=== PATIENT | female | born 1975 | race Caucasian/White ===

== ENCOUNTER → 2016-09-06 | Outpatient (CLI) | payer MEDICAID | LOC: MW.CHNEURO 10:46 | PROVIDERS: ATTEND Psychiatry & Neurology Neuromuscular Medicine | DX: R20.0 Anesthesia of skin (principal); R20.2 Paresthesia of skin; G25.81 Restless legs syndrome; Z98.890 Other specified postprocedural states | CPT/HCPCS: 36415; 82525; 82728; 83921; 84165 ==

== ENCOUNTER 2016-11-18 14:05 | Emergency (ER) | payer MEDICAID ==
[2016-11-18] MEDS ORDERED: Ketorolac 60 MG/2 ML SDV IM ONE (14:25)
--- NOTE | 2016-11-18 14:32 | EDM.PDOC ---
ED HPI GENERAL MEDICAL PROBLEM - General Chief Complaint: Lower Extremity Injury/Pain Stated Complaint: RIGHT KNEE PAIN Time Seen by Provider: 11/18/16 14:11 Source of Information: Reports: Patient History Limitations: Reports: No Limitations - History of Present Illness INITIAL COMMENTS - FREE TEXT/NARRATIVE: Presents reporting right knee swelling. The patient states that she was cleaning her house all morning including doing work on her knees. She had a partial knee replacement on the right in August of 2016. An hour or so after she completed her cleaning she noticed pain and quite a bit of swelling in her right knee. Her surgeon was Dr. Rivera in [place]. right knee Pain Score (Numeric/FACES): 7 - Related Data Allergies Allergy/AdvReac Type Severity Reaction Status Date / Time amoxicillin AdvReac Other Verified 11/18/16 14:09 ciprofloxacin [From Cipro] AdvReac Other Verified 11/18/16 14:09 Home Meds: Home Meds Methylphenidate [Ritalin] 20 mg PO BID 03/03/15 [History] FLUoxetine HCl [Fluoxetine HCl] 40 mg PO QAM 05/26/15 [History] Doxepin [SINEquan] 3 cap PO BEDTIME 02/15/16 [History] Hydrocodone/Acetaminophen [Hydrocodon-Acetaminophen 5-325] 1 - 2 tab PO Q4H PRN 02/15/16 [History] PNV95/Ferrous Fumarate/FA [ Tablet] 1 tab PO DAILY 02/15/16 [History] SUMAtriptan Succinate [Imitrex] 100 mg PO ASDIRECTED 11/18/16 [History] Past Medical History HEENT History: Reports: Allergic Rhinitis Other HEENT History: wears glasses Cardiovascular History: Reports: None Respiratory History: Reports: None Other Respiratory History: when had Cdif in 2004 in [place] Gastrointestinal History: Reports: Chronic Diarrhea, GERD, Other (See Below) Other Gastrointestinal History: irritable bowel Genitourinary History: Reports: None 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: Polycystic Ovaries Musculoskeletal History: Reports: Arthritis, Back Pain, Chronic, Fracture, Fibromyalgia, Neck Pain, Chronic Other Musculoskeletal History: hx of fx tailbone Neurological History: Reports: Concussion, Migraines, Other (See Below) Other Neuro History: hx of restless leg syndrome Psychiatric History: Reports: ADHD, Anxiety, Bipolar, Depression Endocrine/Metabolic History: Reports: Obesity/BMI 30+ Hematologic History: Reports: None Immunologic History: Reports: None Oncologic (Cancer) History: Reports: None Dermatologic History: Reports: None - Infectious Disease History Infectious Disease History: Reports: C-Difficile Other Infectious Disease History: 2004 - Past Surgical History Head Surgeries/Procedures: Reports: None HEENT Surgical History: Reports: Naso-Sinus Surgery, Tonsillectomy Cardiovascular Surgical History: Reports: None Respiratory Surgical History: Reports: None GI Surgical History: Reports: Appendectomy, Colostomy, Small Bowel, Other (See Below) Female Surgical History: Reports: Hysterectomy, Tubal Ligation Endocrine Surgical History: Reports: None Musculoskeletal Surgical History: Reports: Arthroscopic Knee Oncologic Surgical History: Reports: None Dermatological Surgical History: Reports: None Social & Family History - Family History Family Medical History: Noncontributory - Tobacco Use Smoking Status *Q: Never Smoker Second Hand Smoke Exposure: No - Caffeine Use Caffeine Use: Reports: None - Alcohol Use Days Per Week of Alcohol Use: 0 Number of Drinks Per Day: 0 Total Drinks Per Week: 0 - Recreational Drug Use Recreational Drug Use: No Drug Use in Last 12 Months: No Review of Systems - Review of Systems Review Of Systems: ROS reveals no pertinent complaints other than HPI. ED EXAM, GENERAL - Physical Exam Exam: See Below Exam Limited By: No Limitations General Appearance: Alert, No Apparent Distress Ears: Normal External Exam Nose: Normal Inspection Throat/Mouth: Normal Inspection Head: Atraumatic, Normocephalic Neck: Normal Inspection Respiratory/Chest: No Respiratory Distress, Lungs Clear, Normal Breath Sounds Cardiovascular: Normal Peripheral Pulses, Regular Rate, Rhythm GI/Abdominal: Soft Back Exam: Normal Inspection Extremities: Other (Right knee swollen all about the anterior. Knee replacement incision well-healed and without erythema. CMS intact distally, pedal and posttibial pulses strong. Full range of motion of the knee with some limitation due to tightness of the effusion. Full range of motion of the ankle and toes without hesitation or limitation) Neurological: Alert, Oriented Psychiatric: Normal Affect, Normal Mood Skin Exam: Warm, Dry, Intact, Normal Color, No Rash Lymphatic: No Adenopathy Course - Vital Signs Last Recorded V/S: Last Vital Signs Temp 36.6 C 11/18/16 14:10 Pulse 92 11/18/16 14:10 Resp 16 11/18/16 14:10 BP 140/68 11/18/16 14:10 Pulse Ox 97 11/18/16 14:10 - Orders/Labs/Meds Orders: Active Orders 24 hr Category Date Time Status Ketorolac [Toradol] Med 11/18/16 14:25 Once 60 mg IM ONETIME ONE Medication Orders Ketorolac Tromethamine (Toradol) 60 mg IM ONETIME ONE Stop: 11/18/16 14:26 Meds: Medications Generic Name Dose Route Start Last Admin Trade Name Jameson PRN Reason Stop Dose Admin Ketorolac Tromethamine 60 mg 11/18/16 14:25 Toradol IM 11/18/16 14:26 ONETIME ONE Departure - Departure Time of Disposition: 14:32 Disposition: Home, Self-Care 01 Condition: good Clinical Impression: Knee effusion, right - Discharge Information Referrals: PCP,None [Primary Care Provider] - Kay Conner MD [Physician] - Forms: ED Department Discharge Additional Instructions: 1. call orthopedics immediately tomorrow morning get an appointment 2. take the diclofenac anti-inflammatory 3 times a day until seen by Dr. Conner. 3. hydrocodone as needed for pain no driving or operating machinery 4. ankle flex extend exercises every hour to prevent blood clots 5. otherwise restrict ambulation and weightbearing, no lifting, keep right leg elevated 6. Return promptly for fever, redness in the knee - My Orders Last 24 Hours: My Active Orders 11/18/16 14:25 Ketorolac [Toradol] 60 mg IM ONETIME ONE - Assessment/Plan Last 24 Hours: My Active Orders 11/18/16 14:25 Ketorolac [Toradol] 60 mg IM ONETIME ONE
[2016-11-18 14:59] VITALS: BP 116/71
== END 2016-11-18 14:58 | disposition home or self-care (01) ==
LOC: MW.ED 14:05
DX: M25.461 Effusion, right knee (principal); K21.9 Gastro-esophageal reflux disease without esophagitis; F41.9 Anxiety disorder, unspecified; F32.9 Major depressive disorder, single episode, unspecified; F31.9 Bipolar disorder, unspecified; E66.9 Obesity, unspecified; Z68.35 Body mass index [BMI] 35.0-35.9, adult; Z90.49 Acquired absence of other specified parts of digestive tract; Z90.710 Acquired absence of both cervix and uterus; Z98.51 Tubal ligation status; Z96.651 Presence of right artificial knee joint; Z98.890 Other specified postprocedural states; Z79.899 Other long term (current) drug therapy; Z88.1 Allergy status to other antibiotic agents
CPT/HCPCS: 96372; 99283; J1885

== ENCOUNTER 2016-12-08 13:15 | Emergency (ER) | payer MEDICAID ==
[2016-12-08] MEDS ORDERED: Ketorolac 60 MG/2 ML SDV IM ONE (14:34)
[2016-12-08] MEDS ORDERED: Ketorolac 30 MG/ML SDV IVPUSH ONE (14:39)
--- NOTE | 2016-12-08 14:50 | EDM.PDOC ---
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 While she has been urinating or sitting on the toilet she has felt a foreign sensation in her vagina. She has a history of partial colon removal in 2004, with appendectomy, abdominal total hysterectomy in 2014 due to abnormal bleeding. Last was in 1999. She' s had no burning with urination, hematuria and urinary frequency. No fever, chills, abdominal pain nausea vomiting. She feels that she is having incomplete emptying of her bladder since her symptoms began. No other complaints or concerns at this time. Review of systems: As per history of present illness and below otherwise all systems reviewed and negative. Past medical history: As per history of present illness and as reviewed below otherwise noncontributory. Surgical history: As per history of present illness and as reviewed below otherwise noncontributory. Social history: No reported history of drug or alcohol abuse. Family history: As per history of present illness and as reviewed below otherwise noncontributory. Physical exam: HEENT: Atraumatic, normocephalic. Lungs: Clear to auscultation, breath sounds equal bilaterally. Heart: S1S2, regular rate and rhythm. Abdomen: Soft, nondistended, nontender. Mild suprapubic tenderness. No CVAT. Pelvis: Stable nontender. Genitourinary: Normal appearing external genitalia. Normal appearing introitus. No cervix or cervical cuff appreciated. No discharge. Bladder prolapse is appreciated with valsalva maneuver. Rectal: Normal sphincter tone. No hemorrhoids or abnormalities on exam. Extremities: Atraumatic, no cyanosis or edema to feet or lower legs. Neurovascular unremarkable. Neuro: Awake, alert, oriented. Motor and sensory unremarkable throughout. Exam nonfocal. Diagnostics: [UA] Therapeutics: [Toradol 30mg IV] Impression: [bladder prolapse] Plan: [Discussed with patient that urinalysis is clear. Referred to Dr. Parker at the urology clinic for evaluation of bladder prolapse. Recommend patient stay off her feet; Tylenol or ibuprofen as needed. She is here with today's plan QUESTIONS are answered and concerns are addressed.] Definitive disposition and diagnosis as appropriate pending reevaluation and review of above. Lower Back Pain Score (Numeric/FACES): 7 - Related Data Allergies Allergy/AdvReac Type Severity Reaction Status Date / Time amoxicillin AdvReac Other Verified 11/18/16 14:09 ciprofloxacin [From Cipro] AdvReac Other Verified 11/18/16 14:09 Home Meds: Home Meds Methylphenidate [Ritalin] 20 mg PO BID 03/03/15 [History] FLUoxetine HCl [Fluoxetine HCl] 40 mg PO QAM 05/26/15 [History] Doxepin [SINEquan] 3 cap PO BEDTIME 02/15/16 [History] PNV95/Ferrous Fumarate/FA [ Tablet] 1 tab PO DAILY 02/15/16 [History] SUMAtriptan Succinate [Imitrex] 100 mg PO ASDIRECTED 11/18/16 [History] Past Medical History HEENT History: Reports: Allergic Rhinitis Other HEENT History: wears glasses Cardiovascular History: Reports: None Respiratory History: Reports: None Other Respiratory History: when had Cdif in 2004 in [place] Gastrointestinal History: Reports: Chronic Diarrhea, GERD, Other (See Below) Other Gastrointestinal History: irritable bowel Genitourinary History: Reports: None 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: Polycystic Ovaries Musculoskeletal History: Reports: Arthritis, Back Pain, Chronic, Fracture, Fibromyalgia, Neck Pain, Chronic Other Musculoskeletal History: hx of fx tailbone Neurological History: Reports: Concussion, Migraines, Other (See Below) Other Neuro History: hx of restless leg syndrome Psychiatric History: Reports: ADHD, Anxiety, Bipolar, Depression Endocrine/Metabolic History: Reports: Obesity/BMI 30+ Hematologic History: Reports: None Immunologic History: Reports: None Oncologic (Cancer) History: Reports: None Dermatologic History: Reports: None - Infectious Disease History Infectious Disease History: Reports: C-Difficile Other Infectious Disease History: 2005 - Past Surgical History Head Surgeries/Procedures: Reports: None HEENT Surgical History: Reports: Naso-Sinus Surgery, Tonsillectomy Cardiovascular Surgical History: Reports: None Respiratory Surgical History: Reports: None GI Surgical History: Reports: Appendectomy, Colostomy, Small Bowel, Other (See Below) Female Surgical History: Reports: Hysterectomy, Tubal Ligation Endocrine Surgical History: Reports: None Musculoskeletal Surgical History: Reports: Arthroscopic Knee Oncologic Surgical History: Reports: None Dermatological Surgical History: Reports: None Social & Family History - Family History Family Medical History: Noncontributory - Tobacco Use Smoking Status *Q: Never Smoker Second Hand Smoke Exposure: No - Caffeine Use Caffeine Use: Reports: Soda - Alcohol Use Days Per Week of Alcohol Use: 0 Number of Drinks Per Day: 0 Total Drinks Per Week: 0 - Recreational Drug Use Recreational Drug Use: No Drug Use in Last 12 Months: No ED ROS GENERAL - Review of Systems Review Of Systems: ROS reveals no pertinent complaints other than HPI. ED EXAM, RENAL/ - Physical Exam Exam: See Below Course - Vital Signs Last Recorded V/S: Last Vital Signs Temp 97.1 F 12/08/16 13:30 Pulse 86 12/08/16 13:30 Resp 18 12/08/16 13:30 BP 106/70 12/08/16 13:30 Pulse Ox 98 12/08/16 13:30 - Orders/Labs/Meds Orders: Active Orders 24 hr Category Date Time Status Ketorolac [Toradol] Med 12/08/16 14:34 Once 60 mg IM ONETIME ONE Labs: Laboratory Tests 12/08/16 Range/Units 13:40 Urine Color YELLOW Urine Appearance SLT CLOUDY Urine pH 6.0 (5.0-8.0) Ur Specific [place] >= 1.030 (1.001-1.035) Urine Protein 30 (NEGATIVE) mg/dL Urine Glucose (UA) NEGATIVE (NEGATIVE) mg/dL Urine Ketones NEGATIVE (NEGATIVE) mg/dL Urine Occult Blood NEGATIVE (NEGATIVE) Urine Nitrite NEGATIVE (NEGATIVE) Urine Bilirubin NEGATIVE (NEGATIVE) Urine Urobilinogen 0.2 (<2.0) EU/dL Ur Leukocyte Esterase NEGATIVE (NEGATIVE) Urine RBC 0-2 (0-2/HPF) Urine WBC 1-2 (0-5/HPF) Ur Epithelial Cells MODERATE (NONE-FEW) Calcium Oxalate Crystal MODERATE (NEGATIVE) Urine Bacteria 1+ H (NEGATIVE) Urine Mucus MANY (NONE-MOD) Departure - Departure Time of Disposition: 14:40 Disposition: Home, Self-Care 01 Condition: Good Clinical Impression: Prolapse of bladder - Discharge Information Forms: ED Department Discharge Additional Instructions: The following information is given to patients seen in the emergency department who are being discharged to home. This information is to outline your options for follow-up care. We provide all patients seen in our emergency department with a follow-up referral. The need for follow-up, as well as the timing and circumstances, are variable depending upon the specifics of your emergency department visit. If you don't have a primary care physician on staff, we will provide you with a referral. We always advise you to contact your personal physician following an emergency department visit to inform them of the circumstance of the visit and for follow-up with them and/or the need for any referrals to a consulting specialist. The emergency department will also refer you to a specialist when appropriate. This referral assures that you have the opportunity for follow-up care with a specialist. All of these measure are taken in an effort to provide you with optimal care, which includes your follow-up. Under all circumstances we always encourage you to contact your private physician who remains a resource for coordinating your care. When calling for follow-up care, please make the office aware that this follow-up is from your recent emergency room visit. If for any reason you are refused follow-up, please contact the [facility] emergency department at and asked to speak to the emergency department charge nurse. [facility] - Urology [address] [place] [id number] Contact the clinic listed above on Saturday, December 10, and schedule an appointment. Tylenol or ibuprofen as needed for discomfort. Stay off feet as much as possible until urology appointment. Return to ER as needed as discussed. - My Orders Last 24 Hours: My Active Orders 12/08/16 14:34 Ketorolac [Toradol] 60 mg IM ONETIME ONE - Assessment/Plan Last 24 Hours: My Active Orders 12/08/16 14:34 Ketorolac [Toradol] 60 mg IM ONETIME ONE
[2016-12-08 15:36] VITALS: BP 93/54
== END 2016-12-08 15:10 | disposition home or self-care (01) ==
LOC: MW.ED 13:15
DX: N81.10 Cystocele, unspecified (principal); K21.9 Gastro-esophageal reflux disease without esophagitis; M19.90 Unspecified osteoarthritis, unspecified site; G43.909 Migraine, unspecified, not intractable, without status migrainosus; F31.9 Bipolar disorder, unspecified; E66.9 Obesity, unspecified; F41.9 Anxiety disorder, unspecified; Z98.890 Other specified postprocedural states; Z90.710 Acquired absence of both cervix and uterus; Z98.51 Tubal ligation status; Z88.1 Allergy status to other antibiotic agents; Z79.899 Other long term (current) drug therapy
CPT/HCPCS: 81001; 96374; 99283; J1885

== ENCOUNTER 2017-01-03 06:58 | Day surgery (SDC) | payer MEDICAID ==
[2017-01-02 10:26] LABS: CHLORIDE,CL 110 mmol/L (98-110); SODIUM,NA 140 mmol/L (136-146)
[~2017-01-03 06:58] MED LIST: Lactated Ringers 1,000 ML IV SCH; Sodium Chloride 0.9% 10 ML Syringe FLUSH PRN; Sodium Chloride 0.9% 2.5 ML Syringe FLUSH PRN; ceFAZolin 2 GM in Premix Bag 1 BAG IV ONE
[2017-01-03] MEDS ORDERED: Fluorescein 5 ML Vial ONE (07:24)
--- NOTE | 2017-01-03 07:34 | PCM.PREANE ---
Preanesthetic Assessment - Anesthesia/Transfusion/Family Hx Anesthesia History: Prior Anesthesia Without Reaction Other Type of Anesthesia Reaction Comment: DENIES ANY PROBLEMS WITH ANESTHESIA Family History of Anesthesia Reaction: No Transfusion History: No Prior Transfusion(s) Intubation History: Unknown - Review of Systems General: No Symptoms Pulmonary: No Symptoms Cardiovascular: No Symptoms Gastrointestinal: No Symptoms Neurological: No Symptoms Other: Reports: None - Physical Assessment O2 Sat by Pulse Oximetry: 98 Respiratory Rate: 16 Vital Signs: Last Vital Signs Temp 37.5 C 01/03/17 07:19 Pulse 81 01/03/17 07:19 Resp 16 01/03/17 07:19 BP 111/63 01/03/17 07:19 Pulse Ox 98 01/03/17 07:19 Height: 1.7 m Weight: 103.419 kg ASA Class: 3 Mental Status: Alert & Oriented x3 Airway Class: Mallampati = 3 Dentition: Reports: Normal Dentition Thyro-Mental Finger Breadths: 2 Mouth Opening Finger Breadths: 2 ROM/Head Extension: Limited/Partial Lungs: Clear to Auscultation, Normal Respiratory Effort Cardiovascular: Regular Rate, Regular Rhythm - Lab Values: Laboratory Last Values WBC 5.40 K/uL (4.0-11.0) 01/02/17 09:51 RBC 4.58 M/uL (4.30-5.90) 01/02/17 09:51 Hgb 12.8 g/dL (12.0-16.0) 01/02/17 09:51 Hct 40.3 % (36.0-46.0) 01/02/17 09:51 MCV 88.0 fL (80.0-98.0) 01/02/17 09:51 MCH 27.9 pg (27.0-32.0) 01/02/17 09:51 MCHC 31.8 g/dL (31.0-37.0) 01/02/17 09:51 RDW Std Deviation 43.4 fl (28.0-62.0) 01/02/17 09:51 RDW Coeff of Jhonatan 14 % (11.0-15.0) 01/02/17 09:51 Plt Count 230 K/uL (150-400) 01/02/17 09:51 MPV 9.10 fL (7.40-12.00) 01/02/17 09:51 Nucleated RBC % 0.0 /100WBC 01/02/17 09:51 Nucleated RBCs # 0 K/uL 01/02/17 09:51 Sodium 140 mmol/L (136-146) 01/02/17 09:51 Potassium 4.0 mmol/L (3.5-5.1) 01/02/17 09:51 Chloride 110 mmol/L (98-110) 01/02/17 09:51 Carbon Dioxide 22 mmol/L (21-31) 01/02/17 09:51 BUN 15 mg/dL (6.0-23.0) 01/02/17 09:51 Creatinine 0.7 mg/dL (0.6-1.5) 01/02/17 09:51 Est Cr Clr Drug Dosing 100.77 mL/min 01/02/17 09:51 Estimated GFR (MDRD) > 60.0 ml/min 01/02/17 09:51 Glucose 94 mg/dL (60-110) 01/02/17 09:51 Calcium 9.2 mg/dL (8.8-10.8) 01/02/17 09:51 Blood Type O POSITIVE 01/02/17 09:51 Antibody Screen NEGATIVE 01/02/17 09:51 - Allergies Allergies/Adverse Reactions: Allergies Allergy/AdvReac Type Severity Reaction Status Date / Time amoxicillin AdvReac does not Verified 12/31/16 10:34 take due to past C-diff ciprofloxacin [From Cipro] AdvReac does not Verified 12/31/16 10:34 take due to past C-diff - Blood Blood Available: No - Anesthesia Plan Pre-Op Medication Ordered: None - Acknowledgements Anesthesia Type Planned: MAC Pt an Appropriate Candidate for the Planned Anesthesia: Yes Alternatives and Risks of Anesthesia Discussed w Pt/Guardian: Yes Pt/Guardian Understands and Agrees with Anesthesia Plan: Yes PreAnesthesia Questionnaire HEENT History: Reports: Allergic Rhinitis Other HEENT History: wears glasses Cardiovascular History: Reports: None Respiratory History: Reports: None Gastrointestinal History: Reports: GERD, Other (See Below) Other Gastrointestinal History: irritable bowel, hx of C-diff 2004 Genitourinary History: Reports: Renal Calculus [employer] History: Reports: Musculoskeletal History: Reports: Arthritis, Back Pain, Chronic, Fracture, Fibromyalgia, Neck Pain, Chronic, RA Other Musculoskeletal History: hx of fx tailbone Neurological History: Reports: Concussion, Migraines, Other (See Below) Other Neuro History: hx of restless leg syndrome Psychiatric History: Reports: ADHD, Anxiety, Bipolar, Depression, OCD Endocrine/Metabolic History: Reports: Obesity/BMI 30+ Hematologic History: Reports: None Immunologic History: Reports: None Oncologic (Cancer) History: Reports: None Dermatologic History: Reports: None - Infectious Disease History Infectious Disease History: Reports: C-Difficile Other Infectious Disease History: 2004 - Past Surgical History Head Surgeries/Procedures: Reports: None HEENT Surgical History: Reports: Naso-Sinus Surgery, Tonsillectomy Cardiovascular Surgical History: Reports: None Respiratory Surgical History: Reports: None GI Surgical History: Reports: Appendectomy, Colon (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 left per patient), Colostomy, Hernia, Inguinal, Small Bowel, Other (See Below) Other GI Surgeries/Procedures: pt states have colon surgery with colostomy in 2004 with reversal 1 yr later, inguinal hernia repair apr 2016 Female Surgical History: Reports: Hysterectomy, Tubal Ligation Endocrine Surgical History: Reports: None Neurological Surgical History: Reports: Discectomy Other Neurological Surgeries/Procedures: Back surgery in september 2014 Musculoskeletal Surgical History: Reports: Arthroscopic Knee Other Musculoskeletal Surgeries/Procedures:: Knee surgery, back surgery, partial knee arthroplasty in august 2016 Oncologic Surgical History: Reports: None Dermatological Surgical History: Reports: None - SUBSTANCE USE Smoking Status *Q: Never Smoker Second Hand Smoke Exposure: No Days Per Week of Alcohol Use: 0 Number of Drinks Per Day: 0 Total Drinks Per Week: 0 Recreational Drug Use History: No - HOME MEDS Home Medications: Home Meds Methylphenidate [Ritalin] 20 mg PO BID 03/03/15 [History] FLUoxetine HCl [Fluoxetine HCl] 40 mg PO QAM 05/26/15 [History] Doxepin [SINEquan] 2 cap PO BEDTIME 02/15/16 [History] PNV95/Ferrous Fumarate/FA [ Tablet] 1 tab PO DAILY 02/15/16 [History] SUMAtriptan Succinate [Imitrex] 100 mg PO ASDIRECTED PRN 11/18/16 [History] ALPRAZolam [Xanax] 0.5 mg PO ASDIRECTED 12/31/16 [History] Cholecalciferol (Vitamin D3) [Vitamin D3] 1 tab CHEW DAILY 12/31/16 [History] Gabapentin [Neurontin] 2 tab PO BID 12/31/16 [History] L.acidoph,Paracasei, B.lactis [Probiotic] 1 tab PO DAILY 12/31/16 [History] OXcarbazepine [Trileptal] 150 mg PO BID 12/31/16 [History] Omeprazole 20 mg PO BID 12/31/16 [History] Pramipexole Di-HCl [Pramipexole Dihydrochloride] 0.5 mg PO DAILY 12/31/16 [ History] - CURRENT (IN HOUSE) MEDS Current Meds: Current Medications Lactated Ringer's (Ringers, Lactated) 1,000 mls @ 125 mls/hr IV ASDIRECTED GORDON Last Admin: 01/03/17 07:21 Dose: 125 mls/hr Sodium Chloride (Saline Flush) 10 ml FLUSH ASDIRECTED PRN PRN Reason: Keep Vein Open Sodium Chloride (Saline Flush) 2.5 ml FLUSH ASDIRECTED PRN PRN Reason: Keep Vein Open Discontinued Medications Cefazolin Sodium/Dextrose 2 gm (/ Premix) 50 mls @ 100 mls/hr IV ONETIME ONE Stop: 01/02/17 09:01
[2017-01-03] MEDS ORDERED: Lidocaine 2% 5 ML SDV ONE ×2 (07:40→11:08)
[2017-01-03] MEDS ORDERED: Midazolam 1 MG/ML 2 ML SDV ONE (11:08)
[2017-01-03] MEDS ORDERED: Propofol 200 MG/20 ML SDV ONE ×2 (11:08)
[2017-01-03] MEDS ORDERED: fentaNYL 100 MCG/2 ML SDV ONE (11:08)
[2017-01-03] MEDS ORDERED: fentaNYL 250 MCG/5 ML SDV ONE (11:09)
[2017-01-03] MEDS ORDERED: Ondansetron 4 MG/2 ML SDV ONE (11:09)
[2017-01-03] MEDS ORDERED: Neostigmine Methylsulfate 1 MG/ML 5 ML Syringe ONE (11:09)
[2017-01-03] MEDS ORDERED: Ketorolac 30 MG/ML SDV ONE (11:09)
[2017-01-03] MEDS ORDERED: ePHEDrine 50 MG/ML SDV ONE (11:35)
[2017-01-03] MEDS ORDERED: HYDROmorphone 2 MG/ML Syringe ONE (12:43)
[2017-01-03] MEDS ORDERED: Ketorolac 30 MG/ML SDV IVPUSH ONE (13:03)
[2017-01-03] MEDS ORDERED: Morphine 4 MG/ML Syringe IVPUSH PRN (13:03)
[2017-01-03] MEDS ORDERED: Ondansetron 4 MG/2 ML SDV IVPUSH PRN (13:03)
[2017-01-03] MEDS ORDERED: Promethazine 25 MG/ML SDV IM PRN (13:03)
--- NOTE | 2017-01-03 13:07 | PCM.OPNOTE ---
- General Post-Op/Procedure Note Date of Surgery/Procedure: 01/03/17 Findings: Pelvic relaxation Pre Op Diagnosis: Pelvic relaxation Post-Op Diagnosis: Same Anesthesia Technique: General ET Tube Primary Surgeon: [facility] Advisor: Kelli Dobson EBL in mLs: 50 Complications: None Condition: Good
[2017-01-03] MEDS ORDERED: fentaNYL 100 MCG/2 ML SDV IVPUSH PRN (13:20)
[2017-01-03] MEDS ORDERED: HYDROmorphone 2 MG/ML Syringe IVPUSH ONE (13:45)
[2017-01-03] MEDS: Ketorolac 30 MG/ML SDV IVPUSH PRN (17:14)
[2017-01-03] MEDS: Acetaminophen/oxyCODONE 325-5 MG Tab PO PRN (20:48)
--- NOTE | 2017-01-03 22:46 | OR ---
SURGEON: Deep Hoyos MD DATE OF PROCEDURE: PREOPERATIVE DIAGNOSIS: Pelvic relaxation. POSTOPERATIVE DIAGNOSIS: Pelvic relaxation. OPERATION PERFORMED: Pelvic reconstruction and repair of enterocele, rectocele, and cystocele using Xenform, TVT, and cystoscopy. PROCESS LABORATORY SPECIALIST: PHANI Guzman. ANESTHESIA: General endotracheal intubation by Chris High and Dr. Begum. ESTIMATED BLOOD LOSS: Less than 50 mL. COMPLICATION: None. FINDINGS: Rectocele, cystocele, enterocele, and pelvic relaxation. INDICATION: Surgery reader refer to the admit note. PROCEDURE IN DETAIL: The patient was brought to the OR, properly identified, and after adequate level of general anesthesia, the patient was placed in lithotomy position. Prepped and draped in sterile fashion as usual. Straight catheter was used to empty the bladder and then the posterior vaginal wall and the vaginal cuff was infiltrated with copious amount of normal saline and then opened in the midline from the vaginal vault to the introitus and dissected laterally with blunt and sharp dissections. Enterocele and rectocele were identified at this time and reduced and dissected, and then with sharp and blunt dissection. I went to the base of the pelvis and the uterosacral and sacral spinous ligament and the ischial spine was identified on both sides. Once this was done then using a Capio needle, the Capio suture is anchored to the ischial spine and ligament on both sides, and then the Xenform was cut to form to fit the space and anchored to the posterior vaginal wall and to the apex of the vagina, and the 2 arms of the Xenform was anchored to the ischial spine and ligament from both side reducing the enterocele and the rectocele. Once this was done, then the vaginal cuff was closed with 2-0 Vicryl continuous interlocking for hemostasis. Next step, attention was paid to the anterior vaginal wall and the urethra is beneath the anterior vaginal wall. It was infiltrated to about 1 inch with normal saline and then opened in the midline, dissected laterally in a tunneling fashion to create a tunnel for the Solyx TVT. The Solyx TVT is placed in place to elevate the urethrovesical angle and to reduce some element of the cystocele. Once it was done then the vaginal cuff anteriorly closed with 2-0 Vicryl continuous interlocking for hemostasis. Cystoscopy was performed. The bladder was intact. Both ureteric orifices were seen with the urine coming from both of them. Thus, the patency of both ureters was verified. Satisfied with these findings, the procedure ended. Instrument and sponge count were correct. The patient tolerated the procedure well, went to recovery room in stable general condition. ALONSO BRITT /[id number]
[2017-01-04] MEDS: Ketorolac 30 MG/ML SDV IVPUSH PRN (00:25)
[2017-01-04] MEDS: Acetaminophen/oxyCODONE 325-5 MG Tab PO PRN ×2 (04:00→10:04)
[2017-01-04 05:56] LABS: CHLORIDE,CL 108 mmol/L (98-110); SODIUM,NA 140 mmol/L (136-146)
--- NOTE | 2017-01-04 07:40 | PCM48HPAN ---
Post Anesthesia Note - EVALUATION WITHIN 48HRS OF ANESTHETIC Vital Signs in Normal Range: Yes Patient Participated in Evaluation: Yes Respiratory Function Stable: Yes Airway Patent: Yes Cardiovascular Function Stable: Yes Hydration Status Stable: Yes Pain Control Satisfactory: Yes Nausea and Vomiting Control Satisfactory: Yes Mental Status Recovered: Yes
[2017-01-04 07:49] VITALS: BP 88/50
--- NOTE | 2017-01-04 09:19 | PCM.DCSUM1 ---
Discharge Summary - Discharge Data Discharge Date: 01/04/17 Discharge Disposition: Home, Self-Care 01 Condition: Good - Patient Instructions Diet: Usual Diet as Tolerated Activity: As Tolerated Driving: Do Not Drive Showering/Bathing: May Shower Wound/Incision Care: Keep Operative Site/Wound Site Clean and Dry Notify Provider of: Fever, Increased Pain, Nausea and/or Vomiting - Discharge Plan Home Medications: Home Meds Methylphenidate [Ritalin] 20 mg PO BID 03/03/15 [History] FLUoxetine HCl [Fluoxetine HCl] 40 mg PO QAM 05/26/15 [History] Doxepin [SINEquan] 2 cap PO BEDTIME 02/15/16 [History] PNV95/Ferrous Fumarate/FA [ Tablet] 1 tab PO DAILY 02/15/16 [History] SUMAtriptan Succinate [Imitrex] 100 mg PO ASDIRECTED PRN 11/18/16 [History] ALPRAZolam [Xanax] 0.5 mg PO ASDIRECTED 12/31/16 [History] Cholecalciferol (Vitamin D3) [Vitamin D3] 1 tab CHEW DAILY 12/31/16 [History] Gabapentin [Neurontin] 2 tab PO BID 12/31/16 [History] L.acidoph,Paracasei, B.lactis [Probiotic] 1 tab PO DAILY 12/31/16 [History] OXcarbazepine [Trileptal] 150 mg PO BID 12/31/16 [History] Omeprazole 20 mg PO BID 12/31/16 [History] Pramipexole Di-HCl [Pramipexole Dihydrochloride] 0.5 mg PO DAILY 12/31/16 [ History] - General Info Date of Service: 01/04/17 Functional Status: Reports: Pain Controlled - Review of Systems General: Reports: No Symptoms HEENT: Reports: No Symptoms Pulmonary: Reports: No Symptoms Cardiovascular: Reports: No Symptoms Gastrointestinal: Reports: No Symptoms Genitourinary: Reports: No Symptoms Musculoskeletal: Reports: No Symptoms Skin: Reports: No Symptoms Neurological: Reports: No Symptoms Psychiatric: Reports: No Symptoms - Patient Data Vitals - Most Recent: Last Vital Signs Temp 36.7 C 01/04/17 07:48 Pulse 94 01/04/17 07:48 Resp 18 01/04/17 07:48 BP 88/50 L 01/04/17 07:48 Pulse Ox 96 01/04/17 07:48 Weight - Most Recent: 103.419 kg I&O - Last 24 hours: Intake & Output 01/03/17 01/04/17 01/04/17 22:59 06:59 14:59 Intake Total 15 800 Output Total 420 1000 Balance -405 -200 Lab Results - Last 24 hrs: Laboratory Results - last 24 hr 01/04/17 01/04/17 Range/Units 05:29 05:29 WBC 8.42 (4.0-11.0) K/uL RBC 4.08 L (4.30-5.90) M/uL Hgb 11.4 L (12.0-16.0) g/dL Hct 36.1 (36.0-46.0) % MCV 88.5 (80.0-98.0) fL MCH 27.9 (27.0-32.0) pg MCHC 31.6 (31.0-37.0) g/dL RDW Std Deviation 43.0 (28.0-62.0) fl RDW Coeff of Jhonatan 13 (11.0-15.0) % Plt Count 224 (150-400) K/uL MPV 9.10 (7.40-12.00) fL Neut % (Auto) 70.6 (48.0-80.0) % Lymph % (Auto) 20.1 (16.0-40.0) % [place] % (Auto) 7.5 (0.0-15.0) % Eos % (Auto) 1.3 (0.0-7.0) % Baso % (Auto) 0.5 (0.0-1.5) % Neut # (Auto) 6.0 H (1.4-5.7) K/uL Lymph # (Auto) 1.7 (0.6-2.4) K/uL [place] # (Auto) 0.6 (0.0-0.8) K/uL Eos # (Auto) 0.1 (0.0-0.7) K/uL Baso # (Auto) 0.0 (0.0-0.1) K/uL Nucleated RBC % 0.0 /100WBC Nucleated RBCs # 0 K/uL Sodium 140 (136-146) mmol/L Potassium 3.8 (3.5-5.1) mmol/L Chloride 108 (98-110) mmol/L Carbon Dioxide 27 (21-31) mmol/L BUN 12 (6.0-23.0) mg/dL Creatinine 0.8 (0.6-1.5) mg/dL Est Cr Clr Drug Dosing 88.18 mL/min Estimated GFR (MDRD) > 60.0 ml/min Glucose 102 (60-110) mg/dL Calcium 8.3 L (8.8-10.8) mg/dL Med Orders - Current: Current Medications Fentanyl (Sublimaze) 50 mcg IVPUSH Q5M PRN PRN Reason: Pain (severe 7-10) Stop: 01/04/17 13:20 Lactated Ringer's (Ringers, Lactated) 1,000 mls @ 125 mls/hr IV ASDIRECTED [facility] Last Admin: 01/03/17 07:21 Dose: 125 mls/hr Ketorolac Tromethamine (Toradol) 30 mg IVPUSH Q6H PRN PRN Reason: Pain (severe 7-10) Stop: 01/08/17 13:03 Last Admin: 01/04/17 00:25 Dose: 30 mg Morphine Sulfate (Morphine) 4 mg IVPUSH Q2H PRN PRN Reason: Pain (severe 7-10) Ondansetron HCl (Zofran) 4 mg IVPUSH Q6H PRN PRN Reason: Nausea/Vomiting Oxycodone/Acetaminophen (Percocet 325-5 Mg) 2 tab PO Q4H PRN PRN Reason: Pain (moderate 4-6) Last Admin: 01/04/17 04:00 Dose: 2 tab Promethazine HCl (Phenergan) 25 mg IM Q6H PRN PRN Reason: Nausea/Vomiting Sodium Chloride (Saline Flush) 10 ml FLUSH ASDIRECTED PRN PRN Reason: Keep Vein Open Sodium Chloride (Saline Flush) 2.5 ml FLUSH ASDIRECTED PRN PRN Reason: Keep Vein Open Discontinued Medications Ephedrine Sulfate (Ephedrine Sulfate) Confirm Administered Dose 50 mg .ROUTE .STK-MED ONE Stop: 01/03/17 11:36 Fentanyl (Sublimaze) Confirm Administered Dose 100 mcg .ROUTE .STK-MED ONE Stop: 01/03/17 11:09 Fentanyl (Sublimaze) Confirm Administered Dose 250 mcg .ROUTE .STK-MED ONE Stop: 01/03/17 11:10 Fluorescein Sodium (Ak-Fluor) Confirm Administered Dose 5 ml .ROUTE .STK-MED ONE Stop: 01/03/17 07:25 Glycopyrrolate () Confirm Administered Dose 1 mg .ROUTE .STK-MED ONE Stop: 01/03/17 11:10 Hydromorphone HCl (Dilaudid) Confirm Administered Dose 2 mg .ROUTE .ST-MED ONE Stop: 01/03/17 12:44 Hydromorphone HCl (Dilaudid) 0 mg IVPUSH ONETIME ONE Stop: 01/03/17 13:46 Last Admin: 01/03/17 15:07 Dose: Not Given Cefazolin Sodium/Dextrose 2 gm (/ Premix) 50 mls @ 100 mls/hr IV ONETIME ONE Stop: 01/02/17 09:01 Last Admin: 01/03/17 15:06 Dose: Not Given Ketorolac Tromethamine (Toradol) Confirm Administered Dose 30 mg .ROUTE .ST- MED ONE Stop: 01/03/17 11:10 Ketorolac Tromethamine (Toradol) 30 mg IVPUSH ONETIME ONE Stop: 01/03/17 13:04 Last Admin: 01/03/17 15:06 Dose: Not Given Lidocaine (Xylocaine-Mpf 2%) Confirm Administered Dose 5 ml .ROUTE .ST-MED ONE Stop: 01/03/17 07:41 Last Admin: 01/03/17 15:06 Dose: Not Given Lidocaine (Xylocaine-Mpf 2%) Confirm Administered Dose 10 ml .ROUTE .ST-MED ONE Stop: 01/03/17 11:09 Midazolam HCl (Versed 1 Mg/Ml) Confirm Administered Dose 2 mg .ROUTE .STK-MED ONE Stop: 01/03/17 11:09 Neostigmine Methylsulfate (Neostigmine) Confirm Administered Dose 5 mg .ROUTE .STK-MED ONE Stop: 01/03/17 11:10 Ondansetron HCl (Zofran) Confirm Administered Dose 4 mg .ROUTE .STK-MED ONE Stop: 01/03/17 11:10 Propofol (Diprivan 20 Ml) Confirm Administered Dose 200 mg .ROUTE .STK-MED ONE Stop: 01/03/17 11:09 Propofol (Diprivan 20 Ml) Confirm Administered Dose 400 mg .ROUTE .STK-MED ONE Stop: 01/03/17 11:09 Rocuronium [place] (Zemuron) Confirm Administered Dose 50 mg .ROUTE .STK-MED ONE Stop: 01/03/17 11:10 - Exam General: Reports: alert, oriented HEENT: Reports: Pupils equal, Pupils reactive, EOMI, Mucous membr. moist/pink Neck: Reports: supple Lungs: Reports: Clear to Auscultation, Normal Respiratory Effort Cardiovascular: Reports: Regular Rate, Regular Rhythm GI/Abdominal Exam: Normal Bowel Sounds, Soft, Non-Tender, No Organomegaly, No Distention, No Abnormal Bruit, No Mass, Pelvis Stable (Female) Exam: Normal External Exam, Normal Speculum Exam, Normal Bimanual Exam Rectal (Female) Exam: Normal Exam, Normal Rectal Tone Back Exam: Reports: Normal Inspection, Full Range of Motion Extremities: Normal Inspection, Normal Range of Motion, Non-Tender, No Pedal Edema, Normal Capillary Refill Skin: Reports: warm, dry, intact Wound/Incisions: Reports: healing well Neurological: Reports: no new focal deficit Psy/Mental Status: Reports: alert, normal affect, normal mood *Q Meaningful Use (DIS) - VTE *Q VTE Criteria *Q: - Stroke *Q Stroke Criteria *Q: - AMI *Q AMI Criteria *Q:
--- NOTE | 2017-01-04 09:19 | PCM.SURGPN ---
- General Info Date of Service: 01/04/17 POD#: 1 Functional Status: Reports: Pain Controlled - Review of Systems General: Reports: No Symptoms HEENT: Reports: No Symptoms Pulmonary: Reports: No Symptoms Cardiovascular: Reports: No Symptoms Gastrointestinal: Reports: No Symptoms Genitourinary: Reports: No Symptoms Musculoskeletal: Reports: No Symptoms Skin: Reports: No Symptoms Neurological: Reports: No Symptoms Psychiatric: Reports: No Symptoms - Patient Data Vitals - most recent: Last Vital Signs Temp 36.7 C 01/04/17 07:48 Pulse 94 01/04/17 07:48 Resp 18 01/04/17 07:48 BP 88/50 L 01/04/17 07:48 Pulse Ox 96 01/04/17 07:48 Weight - most recent: 103.419 kg I&O - last 24 hours: Intake & Output 01/03/17 01/04/17 01/04/17 22:59 06:59 14:59 Intake Total 15 800 Output Total 420 1000 Balance -405 -200 Lab Results last 24 hrs: Laboratory Results - last 24 hr 01/04/17 01/04/17 Range/Units 05:29 05:29 WBC 8.42 (4.0-11.0) K/uL RBC 4.08 L (4.30-5.90) M/uL Hgb 11.4 L (12.0-16.0) g/dL Hct 36.1 (36.0-46.0) % MCV 88.5 (80.0-98.0) fL MCH 27.9 (27.0-32.0) pg MCHC 31.6 (31.0-37.0) g/dL RDW Std Deviation 43.0 (28.0-62.0) fl RDW Coeff of Jhonatan 13 (11.0-15.0) % Plt Count 224 (150-400) K/uL MPV 9.10 (7.40-12.00) fL Neut % (Auto) 70.6 (48.0-80.0) % Lymph % (Auto) 20.1 (16.0-40.0) % [place] % (Auto) 7.5 (0.0-15.0) % Eos % (Auto) 1.3 (0.0-7.0) % Baso % (Auto) 0.5 (0.0-1.5) % Neut # (Auto) 6.0 H (1.4-5.7) K/uL Lymph # (Auto) 1.7 (0.6-2.4) K/uL [place] # (Auto) 0.6 (0.0-0.8) K/uL Eos # (Auto) 0.1 (0.0-0.7) K/uL Baso # (Auto) 0.0 (0.0-0.1) K/uL Nucleated RBC % 0.0 /100WBC Nucleated RBCs # 0 K/uL Sodium 140 (136-146) mmol/L Potassium 3.8 (3.5-5.1) mmol/L Chloride 108 (98-110) mmol/L Carbon Dioxide 27 (21-31) mmol/L BUN 12 (6.0-23.0) mg/dL Creatinine 0.8 (0.6-1.5) mg/dL Est Cr Clr Drug Dosing 88.18 mL/min Estimated GFR (MDRD) > 60.0 ml/min Glucose 102 (60-110) mg/dL Calcium 8.3 L (8.8-10.8) mg/dL Med Orders - Current: Current Medications Fentanyl (Sublimaze) 50 mcg IVPUSH Q5M PRN PRN Reason: Pain (severe 7-10) Stop: 01/04/17 13:20 Lactated Ringer's (Ringers, Lactated) 1,000 mls @ 125 mls/hr IV ASDIRECTED [facility] Last Admin: 01/03/17 07:21 Dose: 125 mls/hr Ketorolac Tromethamine (Toradol) 30 mg IVPUSH Q6H PRN PRN Reason: Pain (severe 7-10) Stop: 01/08/17 13:03 Last Admin: 01/04/17 00:25 Dose: 30 mg Morphine Sulfate (Morphine) 4 mg IVPUSH Q2H PRN PRN Reason: Pain (severe 7-10) Ondansetron HCl (Zofran) 4 mg IVPUSH Q6H PRN PRN Reason: Nausea/Vomiting Oxycodone/Acetaminophen (Percocet 325-5 Mg) 2 tab PO Q4H PRN PRN Reason: Pain (moderate 4-6) Last Admin: 01/04/17 04:00 Dose: 2 tab Promethazine HCl (Phenergan) 25 mg IM Q6H PRN PRN Reason: Nausea/Vomiting Sodium Chloride (Saline Flush) 10 ml FLUSH ASDIRECTED PRN PRN Reason: Keep Vein Open Sodium Chloride (Saline Flush) 2.5 ml FLUSH ASDIRECTED PRN PRN Reason: Keep Vein Open Discontinued Medications Ephedrine Sulfate (Ephedrine Sulfate) Confirm Administered Dose 50 mg .ROUTE .STK-MED ONE Stop: 01/03/17 11:36 Fentanyl (Sublimaze) Confirm Administered Dose 100 mcg .ROUTE .STK-MED ONE Stop: 01/03/17 11:09 Fentanyl (Sublimaze) Confirm Administered Dose 250 mcg .ROUTE .STK-MED ONE Stop: 01/03/17 11:10 Fluorescein Sodium (Ak-Fluor) Confirm Administered Dose 5 ml .ROUTE .STK-MED ONE Stop: 01/03/17 07:25 Glycopyrrolate () Confirm Administered Dose 1 mg .ROUTE .STK-MED ONE Stop: 01/03/17 11:10 Hydromorphone HCl (Dilaudid) Confirm Administered Dose 2 mg .ROUTE .STK-MED ONE Stop: 01/03/17 12:44 Hydromorphone HCl (Dilaudid) 0 mg IVPUSH ONETIME ONE Stop: 01/03/17 13:46 Last Admin: 01/03/17 15:07 Dose: Not Given Cefazolin Sodium/Dextrose 2 gm (/ Premix) 50 mls @ 100 mls/hr IV ONETIME ONE Stop: 01/02/17 09:01 Last Admin: 01/03/17 15:06 Dose: Not Given Ketorolac Tromethamine (Toradol) Confirm Administered Dose 30 mg .ROUTE .STK- MED ONE Stop: 01/03/17 11:10 Ketorolac Tromethamine (Toradol) 30 mg IVPUSH ONETIME ONE Stop: 01/03/17 13:04 Last Admin: 01/03/17 15:06 Dose: Not Given Lidocaine (Xylocaine-Mpf 2%) Confirm Administered Dose 5 ml .ROUTE .STK-MED ONE Stop: 01/03/17 07:41 Last Admin: 01/03/17 15:06 Dose: Not Given Lidocaine (Xylocaine-Mpf 2%) Confirm Administered Dose 10 ml .ROUTE .STK-MED ONE Stop: 01/03/17 11:09 Midazolam HCl (Versed 1 Mg/Ml) Confirm Administered Dose 2 mg .ROUTE .STK-MED ONE Stop: 01/03/17 11:09 Neostigmine Methylsulfate (Neostigmine) Confirm Administered Dose 5 mg .ROUTE .STK-MED ONE Stop: 01/03/17 11:10 Ondansetron HCl (Zofran) Confirm Administered Dose 4 mg .ROUTE .STK-MED ONE Stop: 01/03/17 11:10 Propofol (Diprivan 20 Ml) Confirm Administered Dose 200 mg .ROUTE .STK-MED ONE Stop: 01/03/17 11:09 Propofol (Diprivan 20 Ml) Confirm Administered Dose 400 mg .ROUTE .STK-MED ONE Stop: 01/03/17 11:09 Rocuronium [place] (Zemuron) Confirm Administered Dose 50 mg .ROUTE .STK-MED ONE Stop: 01/03/17 11:10 - Exam Wound/Incisions: healing well General: alert, oriented HEENT: Pupils equal Neck: supple Lungs: Clear to Auscultation, Normal Respiratory Effort Cardiovascular: Regular Rate, Regular Rhythm GI/Abdominal Exam: Normal Bowel Sounds, Soft, Non-Tender, No Organomegaly, No Distention, No Abnormal Bruit, No Mass, Pelvis Stable Extremities: Normal Inspection, Normal Range of Motion, Non-Tender, No Pedal Edema, Normal Capillary Refill Skin: warm, dry, intact Neurological: no new focal deficit Psy/Mental Status: alert, normal affect, normal mood - Problem List Review Problem List Initiated/Reviewed/Updated: Yes - My Orders Last 24 Hours: Active Orders 24 hr Category Date Time Status Patient Status [ADT] Routine ADT 01/03/17 13:03 Active Antiembolic Devices [RC] Q12H Care 01/03/17 13:04 Active Notify Provider Vital Signs [RC] ASDIRECTED Care 01/03/17 13:03 Active Oxygen Therapy [RC] ASDIRECTED Care 01/03/17 13:03 Active RT Incentive Spirometry [RC] Q2HWA Care 01/03/17 13:03 Active Up With Assistance [RC] PER UNIT ROUTINE Care 01/03/17 13:03 Active Up ad Sally [RC] PER UNIT ROUTINE Care 01/03/17 13:03 Active Urinary Catheter Removal [RC] Per Unit Routine Care 01/03/17 13:03 Active Vital Signs [RC] PER UNIT ROUTINE Care 01/03/17 13:03 Active Regular Diet [DIET] Diet 01/03/17 Dinner Active Acetaminophen/oxyCODONE [Percocet 325-5 MG] Med 01/03/17 13:03 Active 2 tab PO Q4H PRN Ketorolac [Toradol] Med 01/03/17 13:03 Active 30 mg IVPUSH Q6H PRN Morphine Med 01/03/17 13:03 Active 4 mg IVPUSH Q2H PRN Ondansetron [Zofran] Med 01/03/17 13:03 Active 4 mg IVPUSH Q6H PRN Promethazine [Phenergan] Med 01/03/17 13:03 Active 25 mg IM Q6H PRN fentaNYL [Sublimaze] Med 01/03/17 13:20 Active 50 mcg IVPUSH Q5M PRN Peripheral IV Discontinue [OM.PC] Routine Oth 01/03/17 13:03 Ordered Sequential Compression Device [OM.PC] Per Unit Routine Oth 01/03/17 13:03 Ordered Resuscitation Status Routine Resus Stat 01/03/17 13:03 Ordered Medication Orders Fentanyl (Sublimaze) 50 mcg IVPUSH Q5M PRN PRN Reason: Pain (severe 7-10) Stop: 01/04/17 13:20 Lactated Ringer's (Ringers, Lactated) 1,000 mls @ 125 mls/hr IV ASDIRECTED [facility] Last Admin: 01/03/17 07:21 Dose: 125 mls/hr Ketorolac Tromethamine (Toradol) 30 mg IVPUSH Q6H PRN PRN Reason: Pain (severe 7-10) Stop: 01/08/17 13:03 Last Admin: 01/04/17 00:25 Dose: 30 mg Admin: 01/03/17 17:14 Dose: 30 mg Morphine Sulfate (Morphine) 4 mg IVPUSH Q2H PRN PRN Reason: Pain (severe 7-10) Ondansetron HCl (Zofran) 4 mg IVPUSH Q6H PRN PRN Reason: Nausea/Vomiting Oxycodone/Acetaminophen (Percocet 325-5 Mg) 2 tab PO Q4H PRN PRN Reason: Pain (moderate 4-6) Last Admin: 01/04/17 04:00 Dose: 2 tab Admin: 01/03/17 20:48 Dose: 2 tab Promethazine HCl (Phenergan) 25 mg IM Q6H PRN PRN Reason: Nausea/Vomiting Sodium Chloride (Saline Flush) 10 ml FLUSH ASDIRECTED PRN PRN Reason: Keep Vein Open Sodium Chloride (Saline Flush) 2.5 ml FLUSH ASDIRECTED PRN PRN Reason: Keep Vein Open - Plan Plan (Free Text/Narrative):: Status post pelvic reconstruction and TVT postoperative day #1 the vaginal pack is removed there is no bleeding catheter removed. Blood pressure is normal the patient had no complaint have lab work is normal the patient is to be discharged home today the postoperative instruction is given to the patient she is to come to the office 1 week of discharge for postoperative checkup but there is no restriction on her diet and prescription for Percocet 7.5/325 for postoperative pain is given
== END 2017-01-04 11:35 | disposition home or self-care (01) ==
LOC: MW.SDS 06:58 → MW.MS 13:03 → MW.SDS 01-04 11:35
PROVIDERS: ATTEND Obstetrics & Gynecology
PROC: 0JUC0JZ Supplement of Pelvic Region Subcutaneous Tissue and Fascia with Synthetic Substitute, Open Approach (ICD-10-PCS; principal; 2017-01-03)
PROC: 0JUC3JZ Supplement of Pelvic Region Subcutaneous Tissue and Fascia with Synthetic Substitute, Percutaneous Approach (ICD-10-PCS; 2017-01-03)
PROC: 0JUC3JZ Supplement of Pelvic Region Subcutaneous Tissue and Fascia with Synthetic Substitute, Percutaneous Approach (ICD-10-PCS; 2017-01-03)
PROC: 0UQF3ZZ Repair Cul-de-sac, Percutaneous Approach (ICD-10-PCS; 2017-01-03)
DX: N81.4 Uterovaginal prolapse, unspecified (principal); N81.11 Cystocele, midline; N39.3 Stress incontinence (female) (male); Z90.710 Acquired absence of both cervix and uterus; F41.9 Anxiety disorder, unspecified; M19.90 Unspecified osteoarthritis, unspecified site; F31.9 Bipolar disorder, unspecified; M17.11 Unilateral primary osteoarthritis, right knee; F32.9 Major depressive disorder, single episode, unspecified; K21.9 Gastro-esophageal reflux disease without esophagitis; K58.9 Irritable bowel syndrome, unspecified; E66.9 Obesity, unspecified; Z68.35 Body mass index [BMI] 35.0-35.9, adult; G25.81 Restless legs syndrome; M06.9 Rheumatoid arthritis, unspecified; G47.30 Sleep apnea, unspecified; Z88.1 Allergy status to other antibiotic agents; Z79.899 Other long term (current) drug therapy; Z90.49 Acquired absence of other specified parts of digestive tract; Z93.2 Ileostomy status
CPT/HCPCS: 36415; 57250; 57267; 57423; 80048; 85025; 85027; 86850; 86900; 86901; A9270; C1763; C1781; J1170; J1885; J2250; J2405; J3010; J7120; 00942; J2704

== ENCOUNTER 2017-03-12 14:15 | Emergency (ER) | payer MEDICAID ==
[2017-03-12 14:41] VITALS: BP 116/70
--- NOTE | 2017-03-12 14:57 | EDM.PDOC ---
ED HPI GENERAL MEDICAL PROBLEM - General Chief Complaint: Lower Extremity Injury/Pain Stated Complaint: LEFT FOOT INJURY Time Seen by Provider: 03/12/17 14:50 Source of Information: Reports: Patient History Limitations: Reports: No Limitations - History of Present Illness INITIAL COMMENTS - FREE TEXT/NARRATIVE: HISTORY AND PHYSICAL: History of present illness: [Patient comes to the emergency room complaining of left foot pain. She states that she tripped up the stairs 2 weeks ago prior to the onset of foot discomfort. Her pain has gradually gotten worse since the onset. Pain is across the top of her left foot and radiates medially around her foot and heel and up her calf. Has a history of chronic pain due to fibromyalgia. She follows regularly with Dr. Brumfield but has not mentioned the foot discomfort to him even though she has seen him within the past couple of weeks. No numbness or tingling. She has not had any bruising or swelling to her foot. Schedules with Dr. Brumfield for later this week while she is in the ER.] Review of systems: As per history of present illness and below otherwise all systems reviewed and negative. Past medical history: As per history of present illness and as reviewed below otherwise noncontributory. Surgical history: As per history of present illness and as reviewed below otherwise noncontributory. Social history: No reported history of drug or alcohol abuse. Family history: As per history of present illness and as reviewed below otherwise noncontributory. Physical exam: HEENT: Atraumatic, normocephalic. Extremities: No swelling, ecchymosis or erythema to her left foot. Pedal pulses are 2+ and strong. Cap refill less than 2 seconds. Has full range of motion. No tenderness with palpation. Is atraumatic in appearance. Neurovascular unremarkable. Neuro: Awake, alert, oriented. Motor and sensory unremarkable throughout. Exam nonfocal. Diagnostics: [L foot xray, L ankle xray] Impression: [L foot pain] Plan: [Follow up w/ Dr. Brumfield as scheduled. Continue current medications as prescribed. Return to ER as needed as discussed. She is in agreement with today' s plan. All of her questions are answered and concerns are addressed.] Definitive disposition and diagnosis as appropriate pending reevaluation and review of above. Left Foot Pain Score (Numeric/FACES): 6 - Related Data Allergies Allergy/AdvReac Type Severity Reaction Status Date / Time amoxicillin AdvReac does not Verified 03/12/17 14:41 take due to past C-diff ciprofloxacin [From Cipro] AdvReac does not Verified 03/12/17 14:41 take due to past C-diff Home Meds: Home Meds Methylphenidate [Ritalin] 20 mg PO BID 03/03/15 [History] FLUoxetine HCl [Fluoxetine HCl] 40 mg PO QAM 05/26/15 [History] Doxepin [SINEquan] 2 cap PO BEDTIME 02/15/16 [History] PNV95/Ferrous Fumarate/FA [ Tablet] 1 tab PO DAILY 02/15/16 [History] SUMAtriptan Succinate [Imitrex] 100 mg PO ASDIRECTED PRN 11/18/16 [History] ALPRAZolam [Xanax] 0.5 mg PO ASDIRECTED 12/31/16 [History] Cholecalciferol (Vitamin D3) [Vitamin D3] 1 tab CHEW DAILY 12/31/16 [History] Gabapentin [Neurontin] 2 tab PO BID 12/31/16 [History] L.acidoph,Paracasei, B.lactis [Probiotic] 1 tab PO DAILY 12/31/16 [History] OXcarbazepine [Trileptal] 150 mg PO BID 12/31/16 [History] Omeprazole 20 mg PO BID 12/31/16 [History] Pramipexole Di-HCl [Pramipexole Dihydrochloride] 0.5 mg PO DAILY 12/31/16 [ History] oxyCODONE HCl/Acetaminophen [Percocet 7.5-325 mg Tablet] 1 each PO Q4H PRN #30 tablet 01/04/17 [Rx] Past Medical History HEENT History: Reports: Allergic Rhinitis, Other (See Below) Other HEENT History: wears glasses Cardiovascular History: Reports: None Respiratory History: Reports: None Gastrointestinal History: Reports: GERD, Other (See Below) Other Gastrointestinal History: irritable bowel, hx of C-diff 2004 Genitourinary History: Reports: Renal Calculus [employer]ORY [employer]UNTER History: Reports: Musculoskeletal History: Reports: Arthritis, Back Pain, Chronic, Fracture, Fibromyalgia, Neck Pain, Chronic, RA Other Musculoskeletal History: hx of fx tailbone Neurological History: Reports: Concussion, Migraines, Other (See Below) Other Neuro History: hx of restless leg syndrome Psychiatric History: Reports: ADHD, Anxiety, Bipolar, Depression, OCD Endocrine/Metabolic History: Reports: Obesity/BMI 30+ Hematologic History: Reports: None Immunologic History: Reports: None Oncologic (Cancer) History: Reports: None Dermatologic History: Reports: None - Infectious Disease History Infectious Disease History: Reports: None Other Infectious Disease History: 2005 - Past Surgical History Head Surgeries/Procedures: Reports: None HEENT Surgical History: Reports: Naso-Sinus Surgery, Tonsillectomy Cardiovascular Surgical History: Reports: None Respiratory Surgical History: Reports: None GI Surgical History: Reports: Appendectomy, Colon, Colostomy, Hernia, Inguinal, Small Bowel, Other (See Below) Other GI Surgeries/Procedures: pt states have colon surgery with colostomy in 2004 with reversal 1 yr later, inguinal hernia repair apr 2016 Female Surgical History: Reports: Hysterectomy, Tubal Ligation Endocrine Surgical History: Reports: None Neurological Surgical History: Reports: Discectomy Other Neurological Surgeries/Procedures: Back surgery in september 2014 Musculoskeletal Surgical History: Reports: Arthroscopic Knee Other Musculoskeletal Surgeries/Procedures:: Knee surgery, back surgery, partial knee arthroplasty in august 2016 Oncologic Surgical History: Reports: None Dermatological Surgical History: Reports: None Social & Family History - Family History Family Medical History: Noncontributory - Tobacco Use Smoking Status *Q: Never Smoker Second Hand Smoke Exposure: No - Caffeine Use Caffeine Use: Reports: None - Alcohol Use Days Per Week of Alcohol Use: 0 Number of Drinks Per Day: 0 Total Drinks Per Week: 0 - Recreational Drug Use Recreational Drug Use: No Drug Use in Last 12 Months: No Review of Systems - Review of Systems Review Of Systems: ROS reveals no pertinent complaints other than HPI. ED EXAM, GENERAL - Physical Exam Exam: See Below Course - Vital Signs Last Recorded V/S: Last Vital Signs Temp 98.0 F 03/12/17 14:37 Pulse 78 03/12/17 14:37 Resp 16 03/12/17 14:37 BP 116/70 03/12/17 14:37 Pulse Ox 98 03/12/17 14:37 - Orders/Labs/Meds Orders: Active Orders 24 hr Category Date Time Status Ankle Min 3V Lt [CR] Stat Exams 03/12/17 14:58 Taken Foot 2V Lt [CR] Stat Exams 09/26/17 14:58 Taken Departure - Departure Time of Disposition: 16:40 Disposition: Home, Self-Care 01 Condition: Good Clinical Impression: Left foot pain - Discharge Information Referrals: Marin Brumfield MD [Primary Care Provider] - Forms: ED Department Discharge Additional Instructions: The following information is given to patients seen in the emergency department who are being discharged to home. This information is to outline your options for follow-up care. We provide all patients seen in our emergency department with a follow-up referral. The need for follow-up, as well as the timing and circumstances, are variable depending upon the specifics of your emergency department visit. If you don't have a primary care physician on staff, we will provide you with a referral. We always advise you to contact your personal physician following an emergency department visit to inform them of the circumstance of the visit and for follow-up with them and/or the need for any referrals to a consulting specialist. The emergency department will also refer you to a specialist when appropriate. This referral assures that you have the opportunity for follow-up care with a specialist. All of these measure are taken in an effort to provide you with optimal care, which includes your follow-up. Under all circumstances we always encourage you to contact your private physician who remains a resource for coordinating your care. When calling for follow-up care, please make the office aware that this follow-up is from your recent emergency room visit. If for any reason you are refused follow-up, please contact the [facility] emergency department at and asked to speak to the emergency department charge nurse. [address] [address] Follow-up with Dr. Brumfield as scheduled. Continue all medications as prescribed. Return to ER as needed as discussed. - My Orders Last 24 Hours: My Active Orders 03/12/17 14:58 Ankle Min 3V Lt [CR] Stat Foot 2V Lt [CR] Stat - Assessment/Plan Last 24 Hours: My Active Orders 03/12/17 14:58 Ankle Min 3V Lt [CR] Stat Foot 2V Lt [CR] Stat
--- NOTE | 2017-03-13 09:52 | CR ---
EXAM DATE: 03/12/17 PATIENT'S AGE: 41 Patient: SAAD CROCKETT Facility: [place], [place] Site . Site : 1975 Study: XRay Extremity ankle [id number]/26/2017 3:34:37 PM Ordering Physician: Doctor Bronson Final Report: HISTORY: Twisting injury 2 weeks ago. FINDINGS: Three views of the left ankle demonstrates normal soft tissues. The distal tibia , fibula, talar dome and mortise are intact. Alignment is normal. IMPRESSION: No fracture or dislocation within the left ankle. Dictated by Laura Hogan MD @ 03/12/2017 3:50:16 PM Dictated by: Laura Hogan MD @ 03/12/2017 15:51:33 (Electronic Signature) Report Signed by Proxy. MTDGiacomo
--- NOTE | 2017-03-13 09:52 | CR ---
EXAM DATE: 03/12/17 PATIENT'S AGE: 41 Patient: SAAD CROCKETT Facility: [place], [place] Site . Site : 1975 Study: XRay Extremity foot [id number]/26/2017 3:34:13 PM Ordering Physician: Doctor Bronson Final Report: HISTORY: Twisting injury 2 weeks ago. FINDINGS: Two views of the left foot demonstrates traction spur on the plantar aspect of the calcaneus. There is normal alignment present. No fracture line is seen. IMPRESSION: No acute fracture or dislocation within the left foot. Dictated by Laura Hogan MD @ 03/12/2017 3:51:08 PM Dictated by: Laura Hogan MD @ 03/12/2017 15:51:27 (Electronic Signature) Report Signed by Proxy. MTDGiacomo
== END 2017-03-12 16:55 | disposition home or self-care (01) ==
LOC: MW.ED 14:15
DX: M79.672 Pain in left foot (principal); K21.9 Gastro-esophageal reflux disease without esophagitis; M19.90 Unspecified osteoarthritis, unspecified site; F31.9 Bipolar disorder, unspecified; E66.9 Obesity, unspecified; Z90.49 Acquired absence of other specified parts of digestive tract; Z98.890 Other specified postprocedural states; Z87.442 Personal history of urinary calculi; Z88.1 Allergy status to other antibiotic agents; Z79.899 Other long term (current) drug therapy; Z68.35 Body mass index [BMI] 35.0-35.9, adult
CPT/HCPCS: 73610-26-LT; 73610-LT; 73620-26-LT; 73620-LT; 99283

== ENCOUNTER 2017-04-04 11:57 | Day surgery (SDC) | payer MEDICAID ==
[~2017-04-04 11:57] MED LIST changes: +Betamethasone Acetate/Betamethasone Sod Phosphate 30 MG/5 ML MDV ONE; +Iopamidol 408 MG/ML 50 ML SDV ONE; -Lactated Ringers 1,000 ML IV SCH; +Lidocaine 2% 5 ML SDV ONE; +Ropivacaine 0.5% 5 MG/ML 30 ML SDV ONE; -Sodium Chloride 0.9% 10 ML Syringe FLUSH PRN; -Sodium Chloride 0.9% 2.5 ML Syringe FLUSH PRN; -ceFAZolin 2 GM in Premix Bag 1 BAG IV ONE
--- NOTE | 2017-04-04 18:25 | OR ---
SURGEON: Tamiko Santiago D.O. DATE OF PROCEDURE: 04/04/2017 OR STAFF PRESENT: 1. Reid Abbasi RN. 2. Debo Moses RN. 3. Ale Chambers, RT. WOUND CLASSIFICATION: I. PREOPERATIVE DIAGNOSES: 1. Chronic low back pain. 2. Lumbar degenerative disk disease. 3. Lumbar spondylosis. 4. Spinal stenosis POSTOPERATIVE DIAGNOSES: 1. Chronic low back pain. 2. Lumbar degenerative disk disease. 3. Lumbar spondylosis. 4. Spinal stenosis PROCEDURE PERFORMED: 1. Caudal epidural steroid injection. 2. Fluoroscopic guidance for needle placement. 3. Local with oral Valium for sedation. SCREENING QUESTIONS: The patient answered "no" to all of the following questions: 1. Are you allergic to latex? 2. Do you have a bleeding disorder? 3. Do you have any current local or systemic infections? 4. Are you taking any anti-inflammatories or blood thinners? 5. Do you have any joint replacements, heart valve replacements, or a pacemaker? DESCRIPTION OF PROCEDURE: The patient had the procedure thoroughly explained including all possible risks, benefits and alternatives. Consent was signed in my clinic indicating understanding and willingness to proceed. The patient presented to [facility] [place] and was escorted to the dressing room to disrobe and change into a hospital gown. Preoperative vital signs were taken and stable. The patient reported that Valium was taken prior to the procedure. The patient was brought back to the procedure room and placed in the prone position on the procedure room table. A pillow was placed under the hips in order to flatten the lumbar lordosis. The back was prepped with ChloraPrep and sterilely draped. All personnel in the operating room were dressed in appropriate attire including surgical scrubs, head and shoe covers. This was to ensure sterility while in the treatment room. During the time fluoroscopy was in use, all personnel in the operating room wore lead perez with thyroid collars. Sterile technique was used throughout the procedure. The patient was awake and conversant throughout the procedure. There was no evidence of infection at the site of needle insertion. Skeletal landmarks were identified under fluoroscopy for the caudal epidural. Skin was anesthetized with 2% lidocaine with a sterile 27-gauge 1.5 inch needle. Then a 20-gauge Tuohy epidural needle was placed in the epidural space with loss of resistance technique under fluoroscopic guidance. No heme, cerebrospinal fluid, or paresthesias were noted. Isovue-200 contrast dye was injected in 0.2 cubic centimeter increments and seen to outline the epidural space in both AP and lateral views. There was no intravascular flow pattern observed under live fluoroscopy. Then 12 milligrams of Celestone was slowly injected after negative aspiration. The patient tolerated the procedure well. Vital signs were stable during and after the procedure. The staff escorted the patient to the recovery area and the patient was released in stable condition after a brief stay in the recovery room monitored by the nurse. The patient was given both oral and written discharge and follow up instructions with recommendation to follow up given for 2-3 weeks. The patient voiced understanding including understanding of those signs and symptoms that would require emergency care. The patient knows how to contact the office if there are any additional problems or questions in the meantime. PREOPERATIVE PAIN: 8/10. POSTOPERATIVE PAIN: 0/10. FOLLOWUP: Follow up in the Pain Clinic in 3 weeks. YOSEPH / LORENZA /[id number] DAVID
== END 2017-04-04 14:10 | disposition home or self-care (01) ==
LOC: MW.SDS 11:57
PROVIDERS: ATTEND Anesthesiology
DX: G89.29 Other chronic pain (principal); M51.36 Other intervertebral disc degeneration, lumbar region; M47.896 Other spondylosis, lumbar region; M48.061 Spinal stenosis, lumbar region without neurogenic claudication; F41.9 Anxiety disorder, unspecified; F31.9 Bipolar disorder, unspecified; M17.11 Unilateral primary osteoarthritis, right knee; K21.9 Gastro-esophageal reflux disease without esophagitis; K58.9 Irritable bowel syndrome, unspecified; G43.909 Migraine, unspecified, not intractable, without status migrainosus; E66.9 Obesity, unspecified; G25.81 Restless legs syndrome; M06.9 Rheumatoid arthritis, unspecified; G47.30 Sleep apnea, unspecified; Z87.442 Personal history of urinary calculi; Z88.0 Allergy status to penicillin; Z88.1 Allergy status to other antibiotic agents; Z79.899 Other long term (current) drug therapy; Z98.51 Tubal ligation status; Z90.49 Acquired absence of other specified parts of digestive tract; Z90.710 Acquired absence of both cervix and uterus; Z90.89 Acquired absence of other organs; Z98.890 Other specified postprocedural states; Z68.36 Body mass index [BMI] 36.0-36.9, adult
CPT/HCPCS: 62323; J0702; J2795; Q9966

== ENCOUNTER 2017-05-21 11:38 | Day surgery (SDC) | payer MEDICAID ==
--- NOTE | 2017-05-21 20:36 | OR ---
SURGEON: Tamiko Santiago D.O. DATE OF PROCEDURE: 05/21/2017 OR STAFF PRESENT: 1. Isak Burris RN. 2. Dee Sánchez RN. 3. Isak Tracy RN. 4. RT [place]. WOUND CLASSIFICATION: I. PREOPERATIVE DIAGNOSES: 1. Lumbar degenerative disk disease. 2. Lumbar spinal stenosis. 3. Increased BMI. POSTOPERATIVE DIAGNOSES: 1. Lumbar degenerative disk disease. 2. Lumbar spinal stenosis. 3. Increased BMI. PROCEDURE PERFORMED: 1. Caudal epidural steroid injection. 2. Fluoroscopic guidance for needle placement. 3. Local with oral Valium for sedation. SCREENING QUESTIONS: The patient answered "no" to all of the following questions: 1. Are you allergic to latex? 2. Do you have a bleeding disorder? 3. Do you have any current local or systemic infections? 4. Are you taking any anti-inflammatories or blood thinners? 5. Do you have any joint replacements, heart valve replacements, or a pacemaker? DESCRIPTION OF PROCEDURE: The patient had the procedure thoroughly explained including all possible risks, benefits and alternatives. Consent was signed in my clinic indicating understanding and willingness to proceed. The patient presented to [facility] [place] and was escorted to the dressing room to disrobe and change into a hospital gown. Preoperative vital signs were taken and stable. The patient reported that Valium was taken prior to the procedure. The patient was brought back to the procedure room and placed in the prone position on the procedure room table. A pillow was placed under the hips in order to flatten the lumbar lordosis. The back was prepped with ChloraPrep and sterilely draped. All personnel in the operating room were dressed in appropriate attire including surgical scrubs, head and shoe covers. This was to ensure sterility while in the treatment room. During the time fluoroscopy was in use, all personnel in the operating room wore lead perez with thyroid collars. Sterile technique was used throughout the procedure. The patient was awake and conversant throughout the procedure. There was no evidence of infection at the site of needle insertion. Skeletal landmarks were identified under fluoroscopy for the caudal epidural. Skin was anesthetized with 2% lidocaine with a sterile 27-gauge 1.5 inch needle. Then a 20-gauge Tuohy epidural needle was placed in the epidural space with loss of resistance technique under fluoroscopic guidance. No heme, cerebrospinal fluid, or paresthesias were noted. Isovue-200 contrast dye was injected in 0.2 cubic centimeter increments and seen to outline the epidural space in both AP and lateral views. There was no intravascular flow pattern observed under live fluoroscopy. Then 12 milligrams of Celestone was slowly injected after negative aspiration. The patient tolerated the procedure well. Vital signs were stable during and after the procedure. The staff escorted the patient to the recovery area and the patient was released in stable condition after a brief stay in the recovery room monitored by the nurse. The patient was given both oral and written discharge and follow up instructions with recommendation to follow up given for 2-3 weeks. The patient voiced understanding including understanding of those signs and symptoms that would require emergency care. The patient knows how to contact the office if there are any additional problems or questions in the meantime. PREOPERATIVE PAIN: 7/10. POSTOPERATIVE PAIN: 1/10. FOLLOWUP: Followup in the pain clinic in 3 weeks. PRIMARY SURGEON: SECONDARY SURGEON: CONTRACTS REPRESENTATIVE: REASON CONTRACTS REPRESENTATIVE WAS NECESSARY: ROLE OF CONTRACTS REPRESENTATIVE: YOSEPH BRITT /[id number] DAVID
== END 2017-05-21 14:20 | disposition home or self-care (01) ==
LOC: MW.SDS 11:38
PROVIDERS: ATTEND Anesthesiology
DX: M51.36 Other intervertebral disc degeneration, lumbar region (principal); M48.061 Spinal stenosis, lumbar region without neurogenic claudication; F41.9 Anxiety disorder, unspecified; F31.9 Bipolar disorder, unspecified; M17.11 Unilateral primary osteoarthritis, right knee; M47.816 Spondylosis without myelopathy or radiculopathy, lumbar region; K21.9 Gastro-esophageal reflux disease without esophagitis; M79.1 Myalgia; M51.37 Other intervertebral disc degeneration, lumbosacral region; M48.07 Spinal stenosis, lumbosacral region; G25.81 Restless legs syndrome; G47.30 Sleep apnea, unspecified; G43.909 Migraine, unspecified, not intractable, without status migrainosus; G89.29 Other chronic pain; M54.2 Cervicalgia; E66.9 Obesity, unspecified; Z68.36 Body mass index [BMI] 36.0-36.9, adult; Z90.49 Acquired absence of other specified parts of digestive tract; Z98.890 Other specified postprocedural states; Z88.0 Allergy status to penicillin; Z88.1 Allergy status to other antibiotic agents; Z79.899 Other long term (current) drug therapy; Z90.710 Acquired absence of both cervix and uterus
CPT/HCPCS: 62323; J0702; J2795; Q9966

== ENCOUNTER 2017-06-30 12:58 | Emergency (ER) | payer MEDICAID ==
[2017-06-30] MEDS ORDERED: Octyl 2-Cyanoacrylate 1 Tube TOP ONE (15:03)
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
[2017-06-30 15:27] VITALS: BP 108/71
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
== END 2017-06-30 15:27 | disposition home or self-care (01) ==
LOC: MW.ED 12:58
DX: S01.01XA Laceration without foreign body of scalp, initial encounter (principal); K21.9 Gastro-esophageal reflux disease without esophagitis; F31.9 Bipolar disorder, unspecified; Z79.899 Other long term (current) drug therapy; Z88.1 Allergy status to other antibiotic agents; Y04.2XXA Assault by strike against or bumped into by another person, initial encounter
CPT/HCPCS: 12001; 70450; 70486; 99284; A9270